=== PATIENT | male | born 1960 | race Caucasian/White ===

== ENCOUNTER 2021-03-18 17:05 | Inpatient (IN) ==
[2021-03-18] MEDS ORDERED: Dextrose Gel 15 GM/37.5 ML TUBE PO PRN ×2 (17:19)
[2021-03-18] MEDS ORDERED: D5% in Water 1,000 ML IVC PRN (17:19)
[2021-03-18] MEDS ORDERED: *HR* Dextrose 50 % in Water (Vial) 50 ML VIAL IVP PRN (17:19)
[2021-03-18] MEDS ORDERED: Ondansetron ODT 4 MG TAB.RAPDIS SL PRN (17:51)
[2021-03-18 19:13] LABS: Basophils # 0.1 K/mcL (0.0-0.2); Basophils % 0.3 %; Eosinophils # 0.1 K/mcL (0.0-0.6); Eosinophils % 0.4 %; Hematocrit 35.4 % (37.5-50.1); Hemoglobin 11.8 g/dL (12.9-16.9); Immature Granulocytes % 0.5 % (0-4); Lymphocytes # 1.3 K/mcL (0.6-4.6); Lymphocytes % 8.5 %; Mean Corpuscular HGB Conc 33.3 g/dL (31.6-35.5); Mean Corpuscular Hemoglobin 29.4 pg (28.0-33.3); Mean Corpuscular Volume 88.3 fL (83.0-100.0); Monocytes # 1.3 K/mcL (0.0-1.3); Monocytes % 8.7 %; Neutrophils # 12.4 K/mcL (1.6-8.9); Platelet Count 176 K/mcL (140-400); Red Blood Count 4.01 M/mcL (4.19-5.50); Red Cell Distribution Width 12.7 % (11.5-14.5); Segmented Neutrophils % 81.6 %; White Blood Count 15.2 K/mcL (4.3-11.1)
[2021-03-18 19:30] LABS: BUN/Creatinine Ratio 15 (6-26); Blood Urea Nitrogen 17 mg/dL (8-23); Calcium 8.4 mg/dL (8.6-10.3); Carbon Dioxide 27 mEq/L (23-29); Chloride 101 mEq/L (98-107); Glucose 144 mg/dL (70-105); Osmolality,Calculated 282 (280-300); Potassium 4.2 mEq/L (3.5-5.1); Sodium 134 mEq/L (136-145); eGFR For African Americans > 60 (> 60); eGFR For Non-African Americans > 60 (> 60)
[2021-03-18 21:16] LABS: Adenovirus Not Detected (Not Detect); Coronavirus 229E Not Detected (Not Detect); Coronavirus HKU1 Not Detected (Not Detect); Coronavirus NL63 Not Detected (Not Detect); Coronavirus OC43 Not Detected (Not Detect); Human Metapneumovirus Not Detected (Not Detect); Human Rhinovirus/Enterovirus Not Detected (Not Detect); SARS-CoV-2 Not Detected (Not Detect)
[2021-03-18 21:17] LABS: Bordetella Pertussis Not Detected (Not Detect); Chlamydophila pneumoniae Not Detected (Not Detect); Influenza A Subtype 2009 H1 Not Detected (Not Detect); Influenza B Not Detected (Not Detect); Mycoplasma pneumoniae Not Detected (Not Detect); Parainfluenza Virus 1 Not Detected (Not Detect); Parainfluenza Virus 2 Not Detected (Not Detect); Parainfluenza Virus 3 Not Detected (Not Detect); Parainfluenza Virus 4 Not Detected (Not Detect); Respiratory Syncytial Virus Not Detected (Not Detect)
[2021-03-18] MEDS: Insulin LISPRO 300 UNITS/3 ML VIAL SUBQ SCH (21:36)
[2021-03-18] MEDS: *HR* OxyCODONE/APAP 5/325 TABLET PO PRN (21:38)
[2021-03-18] MEDS: cephALEXin 500 MG CAPSULE PO SCH (21:40)
[2021-03-18] MEDS: Sennosides/Docusate Sodium TABLET PO SCH (21:41)
[2021-03-18] MEDS: Aspirin Enteric Coated 81 MG Tablet PO SCH (21:42)
[2021-03-19] MEDS: *HR* OxyCODONE/APAP 5/325 TABLET PO PRN ×3 (03:03→15:52)
[2021-03-19] MEDS: amLODIPine 5 MG TABLET PO SCH ×2 (06:04→07:25)
[2021-03-19 06:08] LABS: Basophils % 0.3 %; Eosinophils # 0.1 K/mcL (0.0-0.6); Hematocrit 33.8 % (37.5-50.1); Hemoglobin 11.1 g/dL (12.9-16.9); Immature Granulocytes % 0.6 % (0-4); Lymphocytes # 1.5 K/mcL (0.6-4.6); Lymphocytes % 11.8 %; Mean Corpuscular HGB Conc 32.8 g/dL (31.6-35.5); Mean Corpuscular Hemoglobin 28.9 pg (28.0-33.3); Mean Platelet Volume 11.8 fL (9.4-12.4); Monocytes # 1.2 K/mcL (0.0-1.3); Monocytes % 9.4 %; Neutrophils # 9.7 K/mcL (1.6-8.9); Platelet Count 171 K/mcL (140-400); Red Blood Count 3.84 M/mcL (4.19-5.50); Red Cell Distribution Width 12.6 % (11.5-14.5); Segmented Neutrophils % 76.9 %; White Blood Count 12.6 K/mcL (4.3-11.1)
[2021-03-19 06:29] LABS: BUN/Creatinine Ratio 15 (6-26); Blood Urea Nitrogen 16 mg/dL (8-23); Calcium 8.2 mg/dL (8.6-10.3); Carbon Dioxide 28 mEq/L (23-29); Chloride 102 mEq/L (98-107); Glucose 183 mg/dL (70-105); Osmolality,Calculated 286 (280-300); Potassium 3.9 mEq/L (3.5-5.1); Sodium 135 mEq/L (136-145); eGFR For African Americans > 60 (> 60); eGFR For Non-African Americans > 60 (> 60)
[2021-03-19] MEDS: *HR* Metformin 500 MG TABLET PO SCH ×2 (09:02→20:40)
[2021-03-19] MEDS: atenoloL 50 MG TABLET PO SCH (09:02)
[2021-03-19] MEDS: cephALEXin 500 MG CAPSULE PO SCH ×3 (09:02→20:40)
[2021-03-19] MEDS: Aspirin Enteric Coated 81 MG Tablet PO SCH ×2 (09:03→20:39)
[2021-03-19] MEDS: Sennosides/Docusate Sodium TABLET PO SCH ×2 (09:03→20:40)
[2021-03-19] MEDS: Lisinopril-HCTZ 20-12.5mg TABLET PO SCH (09:03)
[2021-03-19] MEDS: Insulin DETEMIR 100 UNIT/ML X5UNITS SUBQ SCH (09:11)
[2021-03-19] MEDS: Insulin LISPRO 300 UNITS/3 ML VIAL SUBQ SCH ×4 (09:11→22:00)
[2021-03-19 11:35] LABS: Bilirubin,Urine Negative (Negative); Blood,Urine Trace-intact (Negative); Clarity,Urine Clear (Clear); Color,Urine Yellow (Yellow); Glucose,Urine (UA) 100 mg/dL (Normal); Ketones,Urine Negative (Negative); Leukocyte Esterase,Urine Negative (Negative); Nitrite,Urine Negative (Negative); Protein,Urine 30 mg/dL (Neg-Trace); Specific Gravity,Urine 1.015 (1.010-1.025); Urobilinogen,Urine Normal (Normal)
[2021-03-19 11:46] LABS: RBC,Urine 0-3 per hpf (0-3); Squamous Epithelial Cell,Urine Few per hpf (None-Few)
[2021-03-19] MEDS: tiZANidine 4 MG TABLET PO SCH ×2 (14:38→20:40)
[2021-03-20] MEDS: *HR* OxyCODONE/APAP 5/325 TABLET PO PRN ×2 (05:35→20:32)
[2021-03-20 05:51] LABS: Basophils % 0.3 %; Eosinophils # 0.2 K/mcL (0.0-0.6); Eosinophils % 1.7 %; Hematocrit 31.9 % (37.5-50.1); Hemoglobin 10.5 g/dL (12.9-16.9); Immature Granulocytes % 0.6 % (0-4); Lymphocytes # 1.5 K/mcL (0.6-4.6); Lymphocytes % 11.9 %; Mean Corpuscular HGB Conc 32.9 g/dL (31.6-35.5); Mean Corpuscular Hemoglobin 29.1 pg (28.0-33.3); Mean Corpuscular Volume 88.4 fL (83.0-100.0); Mean Platelet Volume 11.3 fL (9.4-12.4); Monocytes # 1.1 K/mcL (0.0-1.3); Monocytes % 8.8 %; Platelet Count 165 K/mcL (140-400); Red Blood Count 3.61 M/mcL (4.19-5.50); Red Cell Distribution Width 12.7 % (11.5-14.5); Segmented Neutrophils % 76.7 %; White Blood Count 12.7 K/mcL (4.3-11.1)
[2021-03-20 05:53] LABS: Neutrophils # 9.7 K/mcL (1.6-8.9)
[2021-03-20 06:05] LABS: BUN/Creatinine Ratio 16 (6-26); Blood Urea Nitrogen 19 mg/dL (8-23); Calcium 8.7 mg/dL (8.6-10.3); Carbon Dioxide 29 mEq/L (23-29); Chloride 100 mEq/L (98-107); Glucose 127 mg/dL (70-105); Osmolality,Calculated 282 (280-300); Potassium 4.3 mEq/L (3.5-5.1); Sodium 134 mEq/L (136-145); eGFR For African Americans > 60 (> 60); eGFR For Non-African Americans > 60 (> 60)
[2021-03-20] MEDS: atenoloL 50 MG TABLET PO SCH (08:20)
[2021-03-20] MEDS: tiZANidine 4 MG TABLET PO SCH ×3 (08:20→20:33)
[2021-03-20] MEDS: Sennosides/Docusate Sodium TABLET PO SCH ×2 (08:20→20:33)
[2021-03-20] MEDS: cephALEXin 500 MG CAPSULE PO SCH ×3 (08:20→20:33)
[2021-03-20] MEDS: Aspirin Enteric Coated 81 MG Tablet PO SCH ×2 (08:20→20:32)
[2021-03-20] MEDS: amLODIPine 5 MG TABLET PO SCH (08:20)
[2021-03-20] MEDS: Lisinopril-HCTZ 20-12.5mg TABLET PO SCH (08:20)
[2021-03-20] MEDS: *HR* Metformin 500 MG TABLET PO SCH ×2 (08:20→20:33)
[2021-03-20] MEDS: Insulin LISPRO 300 UNITS/3 ML VIAL SUBQ SCH ×4 (08:21→20:34)
[2021-03-20] MEDS: Insulin DETEMIR 100 UNIT/ML X5UNITS SUBQ SCH (08:31)
[2021-03-20] MEDS: Acetaminophen 325 MG TABLET PO PRN (11:16)
[2021-03-21] MEDS: *HR* OxyCODONE/APAP 5/325 TABLET PO PRN ×3 (04:53→20:18)
[2021-03-21] MEDS: Insulin LISPRO 300 UNITS/3 ML VIAL SUBQ SCH ×4 (07:26→20:17)
[2021-03-21] MEDS: Sennosides/Docusate Sodium TABLET PO SCH ×2 (08:34→20:18)
[2021-03-21] MEDS: tiZANidine 4 MG TABLET PO SCH ×3 (08:34→20:18)
[2021-03-21] MEDS: Aspirin Enteric Coated 81 MG Tablet PO SCH ×2 (08:34→20:18)
[2021-03-21] MEDS: *HR* Metformin 500 MG TABLET PO SCH ×2 (08:34→20:18)
[2021-03-21] MEDS: Lisinopril-HCTZ 20-12.5mg TABLET PO SCH (08:35)
[2021-03-21] MEDS: atenoloL 50 MG TABLET PO SCH (08:35)
[2021-03-21] MEDS: cephALEXin 500 MG CAPSULE PO SCH ×3 (08:35→20:18)
[2021-03-21] MEDS: amLODIPine 5 MG TABLET PO SCH (08:35)
[2021-03-21] MEDS: Insulin DETEMIR 100 UNIT/ML X5UNITS SUBQ SCH (08:36)
[2021-03-21] MEDS ORDERED: MOM Conc 10 ML UD.LIQ PO PRN (14:15)
[2021-03-22] MEDS: *HR* OxyCODONE/APAP 5/325 TABLET PO PRN ×3 (05:03→20:31)
[2021-03-22] MEDS: Lisinopril-HCTZ 20-12.5mg TABLET PO SCH (08:25)
[2021-03-22] MEDS: Aspirin Enteric Coated 81 MG Tablet PO SCH ×2 (08:26→20:30)
[2021-03-22] MEDS: *HR* Metformin 500 MG TABLET PO SCH ×2 (08:26→20:31)
[2021-03-22] MEDS: Sennosides/Docusate Sodium TABLET PO SCH ×2 (08:26→20:31)
[2021-03-22] MEDS: tiZANidine 4 MG TABLET PO SCH ×3 (08:26→20:31)
[2021-03-22] MEDS: amLODIPine 5 MG TABLET PO SCH (08:26)
[2021-03-22] MEDS: cephALEXin 500 MG CAPSULE PO SCH ×3 (08:26→20:31)
[2021-03-22] MEDS: atenoloL 50 MG TABLET PO SCH (08:26)
[2021-03-22] MEDS: Acetaminophen 325 MG TABLET PO PRN (08:28)
[2021-03-22] MEDS: Insulin LISPRO 300 UNITS/3 ML VIAL SUBQ SCH ×4 (08:30→20:40)
[2021-03-22] MEDS: Insulin DETEMIR 100 UNIT/ML X5UNITS SUBQ SCH (10:03)
[2021-03-22 19:39] VITALS: O2SAT 95
[2021-03-23] MEDS: *HR* OxyCODONE/APAP 5/325 TABLET PO PRN ×3 (04:02→14:22)
[2021-03-23 07:31] VITALS: BP 159/80; PULSE 78; RESP 16; TEMP 98.5
[2021-03-23] MEDS: cephALEXin 500 MG CAPSULE PO SCH (08:45)
[2021-03-23] MEDS: Sennosides/Docusate Sodium TABLET PO SCH (08:45)
[2021-03-23] MEDS: Aspirin Enteric Coated 81 MG Tablet PO SCH (08:45)
[2021-03-23] MEDS: atenoloL 50 MG TABLET PO SCH (08:46)
[2021-03-23] MEDS: Lisinopril-HCTZ 20-12.5mg TABLET PO SCH (08:46)
[2021-03-23] MEDS: tiZANidine 4 MG TABLET PO SCH (08:46)
[2021-03-23] MEDS: *HR* Metformin 500 MG TABLET PO SCH (08:46)
[2021-03-23] MEDS: amLODIPine 5 MG TABLET PO SCH (08:46)
[2021-03-23] MEDS: Insulin LISPRO 300 UNITS/3 ML VIAL SUBQ SCH ×2 (08:51→12:08)
[2021-03-23] MEDS: Insulin DETEMIR 100 UNIT/ML X5UNITS SUBQ SCH (08:52)
== END 2021-03-23 14:33 | disposition home or self-care (01) | DRG 561 ==
LOC: INPGRE 17:05
PROVIDERS: ADMIT Family Medicine; ATTEND Family Medicine